=== PATIENT | male | born 1965 | race Caucasian/White ===

== ENCOUNTER 2017-03-16 01:07 | Inpatient (IN) | payer MEDICAID, OTHER ==
[~2017-03-16] VITALS: Ht 175.3 cm; Wt 77.8 kg
[~2017-03-16 01:07] MED LIST: DOXE25 PO
[2017-03-16] MEDS ORDERED: BENZ1TAB10 PO (03:30)
[2017-03-16 04:25] LABS: BASOPHILS % (AUTO) 1.2 % (0.0-2.0); EOSINOPHILS % (AUTO) 2.1 % (1.0-6.0); HEMATOCRIT 42.1 % (41-53); HEMOGLOBIN 14.6 g/dL (13.5-17.5); LYMPHOCYTES # (AUTO) 2.7 K/uL (1.0-4.8); LYMPHOCYTES % (AUTO) 19.8 % (22.0-44.0); MEAN CORPUSCULAR HEMOGLOBIN 32.5 pg (26.0-34.0); MEAN CORPUSCULAR HGB CONC 34.8 G/dL (31.0-37.0); MEAN CORPUSCULAR VOLUME 94 fL (80-100); MONOCYTES # (AUTO) 1.2 K/uL (0.1-1.0); MONOCYTES % (AUTO) 8.5 % (2.0-9.0); NEUTROPHILS # (AUTO) 9.4 K/uL (1.8-7.7); NEUTROPHILS % (AUTO) 68.4 % (40.0-70.0); PLATELET COUNT (AUTO) 268 K/uL (150-450); RED CELL DISTRIBUTION WIDTH 12.8 % (11.5-14.5)
[2017-03-16 04:35] LABS: ANION GAP 9 mmol/L (8-16); CARBON DIOXIDE 27 mmol/L (22-29); CHLORIDE 94 mmol/L (98-107); CREATININE 0.92 mg/dL (0.60-1.30); GLOMERULAR FILTR. RATE CALC > 60 mL/min (>60); GLUCOSE,RANDOM 120 mg/dL (70-110); POTASSIUM 4.1 mmol/L (3.5-5.1); SODIUM SERUM 130 mmol/L (136-145); UREA NITROGEN, BLOOD 14 mg/dL (7-18)
[2017-03-16 04:41] LABS: ALANINE AMINOTRANSFERASE 34 U/L (12-78); ALBUMIN 4.2 g/dL (3.4-5.0); ALKALINE PHOSPHATASE 60 U/L (46-116); ASPARTATE AMINOTRANSFERASE 27 U/L (15-37); BILIRUBIN,TOTAL 0.4 mg/dL (0.1-1.0); TOTAL PROTEIN, SERUM 7.6 g/dL (6.4-8.2)
[2017-03-16] MEDS ORDERED: HALOPERIDOL LACTATE 5 MG/ML VIAL IM ONE ×2 (04:45→08:15)
[2017-03-16] MEDS ORDERED: LORazepam 2 MG/ML VIAL IM ONE ×2 (04:45→08:15)
[2017-03-16] MEDS ORDERED: DiphenhydrAMINE HCL 50 MG/ML VIAL IM ONE ×2 (04:45→08:15)
[2017-03-16 05:12] LABS: AMPHET/METH SCREEN,URINE POSITIVE (NEGATIVE); BARBITURATE SCREEN, URINE NEGATIVE (NEGATIVE); BENZODIAZEPINES SCREEN,URINE NEGATIVE (NEGATIVE); CANNABINOID SCREEN,URINE NEGATIVE (NEGATIVE); COCAINE SCREEN,URINE NEGATIVE (NEGATIVE); METHADONE SCREEN, URINE NEGATIVE (NEGATIVE); OPIATE SCREEN,URINE NEGATIVE (NEGATIVE)
[2017-03-16 05:17] LABS: PHENCYCLIDINE SCREEN,URINE NEGATIVE (NEGATIVE)
[2017-03-16 05:50] LABS: APPEARANCE,URINE CLEAR (CLEAR); BILIRUBIN,URINE NEGATIVE (NEGATIVE); GLUCOSE, URINE (UA) NEGATIVE (NEGATIVE); KETONES,URINE NEGATIVE (NEGATIVE); LEUKOCYTE ESTERASE ,URINE NEGATIVE (NEGATIVE); NITRATE,URINE NEGATIVE (NEGATIVE); OCCULT BLOOD,URINE NEGATIVE (NEGATIVE); PROTEIN,URINE NEGATIVE (NEGATIVE); UROBILINOGEN,URINE 0.2 mg/dL (<=1.0)
[2017-03-16 15:01] VITALS: BP 137/80
[2017-03-16] MEDS ORDERED: INFLUENZA VIRUS VACCINE QVS 2017-18 (3YR+)/PF 60 MCG/0.5 ML SYRINGE IM ONE (15:30)
[2017-03-16 16:00] VITALS: BP 128/74
[2017-03-16] MEDS: LORazepam 2 MG TABLET PO PRN (16:00)
[2017-03-17 04:55] VITALS: BP 120/68
[2017-03-17 08:00] VITALS: BP 140/88
[2017-03-17 08:25] LABS: CHOL/HDL RATIO 2.8 (4.2-7.3)
[2017-03-17] MEDS: HALOPERIDOL 5 MG TABLET PO PRN ×2 (09:57→16:35)
[2017-03-17] MEDS: LORazepam 2 MG TABLET PO PRN ×2 (09:57→16:35)
[2017-03-17] MEDS: OLANZapine 5 MG TABLET PO SCH ×2 (09:57→20:14)
[2017-03-17 16:04] VITALS: BP 137/78
[2017-03-18 06:24] VITALS: BP 132/82
[2017-03-18 08:03] VITALS: BP 137/86
[2017-03-18] MEDS: OLANZapine 5 MG TABLET PO SCH ×2 (09:02→20:22)
[2017-03-18] MEDS: LORazepam 2 MG TABLET PO PRN ×2 (16:14→20:22)
[2017-03-18] MEDS: HALOPERIDOL 5 MG TABLET PO PRN (16:14)
[2017-03-18 16:25] VITALS: BP 115/72
[2017-03-18] MEDS: ZOLPIDEM TARTRATE 10 MG TABLET PO PRN (20:22)
[2017-03-19 02:30] VITALS: BP 118/80
[2017-03-19 08:10] VITALS: BP 123/74
[2017-03-19] MEDS: OLANZapine 5 MG TABLET PO SCH ×2 (08:11→20:07)
[2017-03-19] MEDS: LORazepam 2 MG TABLET PO PRN ×3 (08:11→17:16)
[2017-03-19] MEDS: HALOPERIDOL 5 MG TABLET PO PRN (08:11)
[2017-03-19 16:00] VITALS: BP 136/82
[2017-03-19] MEDS: FAMOTIDINE 20 MG TABLET PO SCH (17:00)
[2017-03-19] MEDS: LISINOPRIL 10 MG TABLET PO SCH (17:16)
[2017-03-19] MEDS: OMEPRAZOLE 20 MG CAPSULE PO SCH (17:16)
[2017-03-19] MEDS: ASPIRIN 81 MG CHEWABLE TABLET PO SCH (17:16)
[2017-03-20 04:52] VITALS: BP 138/88
[2017-03-20 08:11] LABS: BASOPHILS % (AUTO) 0.7 % (0.0-2.0); EOSINOPHILS % (AUTO) 2.4 % (1.0-6.0); HEMATOCRIT 41.8 % (41-53); HEMOGLOBIN 14.5 g/dL (13.5-17.5); LYMPHOCYTES # (AUTO) 1.7 K/uL (1.0-4.8); LYMPHOCYTES % (AUTO) 19.2 % (22.0-44.0); MEAN CORPUSCULAR HEMOGLOBIN 32.6 pg (26.0-34.0); MEAN CORPUSCULAR HGB CONC 34.7 G/dL (31.0-37.0); MEAN CORPUSCULAR VOLUME 94 fL (80-100); MONOCYTES # (AUTO) 0.6 K/uL (0.1-1.0); MONOCYTES % (AUTO) 7.1 % (2.0-9.0); NEUTROPHILS # (AUTO) 6.3 K/uL (1.8-7.7); NEUTROPHILS % (AUTO) 70.6 % (40.0-70.0); PLATELET COUNT (AUTO) 252 K/uL (150-450); RED BLOOD CELL COUNT(AUTO) 4.45 MIL/uL (4.50-5.90); RED CELL DISTRIBUTION WIDTH 12.6 % (11.5-14.5)
[2017-03-20 08:50] LABS: ANION GAP 7 mmol/L (8-16); CALCIUM, TOTAL 8.8 mg/dL (8.8-10.5); CARBON DIOXIDE 30 mmol/L (22-29); CHLORIDE 94 mmol/L (98-107); CREATININE 0.89 mg/dL (0.60-1.30); GLOMERULAR FILTR. RATE CALC > 60 mL/min (>60); GLUCOSE,RANDOM 123 mg/dL (70-110); POTASSIUM 4.4 mmol/L (3.5-5.1); SODIUM SERUM 131 mmol/L (136-145); UREA NITROGEN, BLOOD 11 mg/dL (7-18)
[2017-03-20 08:56] VITALS: BP 127/63
[2017-03-20] MEDS: OLANZapine 5 MG TABLET PO SCH (09:11)
[2017-03-20] MEDS: LORazepam 2 MG TABLET PO PRN ×3 (09:11→20:39)
[2017-03-20] MEDS: ASPIRIN 81 MG CHEWABLE TABLET PO SCH (09:11)
[2017-03-20] MEDS: LISINOPRIL 10 MG TABLET PO SCH (09:11)
[2017-03-20] MEDS: OMEPRAZOLE 20 MG CAPSULE PO SCH (09:11)
[2017-03-20] MEDS: HALOPERIDOL 5 MG TABLET PO PRN (09:11)
[2017-03-20] MEDS: FAMOTIDINE 20 MG TABLET PO SCH ×2 (09:11→16:36)
[2017-03-20] MEDS ORDERED: TUBERCULIN, PURIFIED PROTEIN DERIVATIVE 5 TU/0.1 ML SYG ID ONE (14:30)
[2017-03-20 16:00] VITALS: BP 138/82
[2017-03-20] MEDS: BENZTROPINE MESYLATE 1 MG TABLET PO SCH (16:35)
[2017-03-20] MEDS: CloZAPine 25 MG TABLET PO SCH (16:35)
[2017-03-20] MEDS: ZOLPIDEM TARTRATE 10 MG TABLET PO PRN (20:39)
[2017-03-21 05:27] VITALS: BP 134/79
[2017-03-21] MEDS: OMEPRAZOLE 20 MG CAPSULE PO SCH ×2 (08:12→09:00)
[2017-03-21] MEDS: CloZAPine 25 MG TABLET PO SCH ×3 (08:12→16:14)
[2017-03-21] MEDS: LORazepam 2 MG TABLET PO PRN ×2 (08:12→10:12)
[2017-03-21] MEDS: HALOPERIDOL 5 MG TABLET PO PRN (08:12)
[2017-03-21] MEDS: LISINOPRIL 10 MG TABLET PO SCH ×2 (08:12→09:00)
[2017-03-21] MEDS: BENZTROPINE MESYLATE 1 MG TABLET PO SCH ×3 (08:12→16:14)
[2017-03-21] MEDS: FAMOTIDINE 20 MG TABLET PO SCH ×3 (08:13→16:15)
[2017-03-21] MEDS: ASPIRIN 81 MG CHEWABLE TABLET PO SCH ×2 (08:13→09:00)
[2017-03-21 08:37] VITALS: BP 133/79
[2017-03-21 16:32] VITALS: BP 135/72
[2017-03-21] MEDS: ZOLPIDEM TARTRATE 10 MG TABLET PO PRN (20:18)
[2017-03-22 01:01] VITALS: BP 138/88
[2017-03-22] MEDS: LORazepam 2 MG TABLET PO PRN ×2 (01:02→16:41)
[2017-03-22 08:03] VITALS: BP 131/79
[2017-03-22] MEDS: BENZTROPINE MESYLATE 1 MG TABLET PO SCH ×2 (09:00→16:41)
[2017-03-22] MEDS: LISINOPRIL 10 MG TABLET PO SCH (09:00)
[2017-03-22] MEDS: OMEPRAZOLE 20 MG CAPSULE PO SCH (09:00)
[2017-03-22] MEDS: ASPIRIN 81 MG CHEWABLE TABLET PO SCH (09:00)
[2017-03-22] MEDS: CloZAPine 25 MG TABLET PO SCH ×2 (09:00→16:41)
[2017-03-22] MEDS: FAMOTIDINE 20 MG TABLET PO SCH ×2 (09:00→16:41)
[2017-03-22 16:00] VITALS: BP 138/77
[2017-03-22] MEDS: HALOPERIDOL 5 MG TABLET PO PRN (16:41)
[2017-03-23] MEDS ORDERED: DiphenhydrAMINE HCL 50 MG/ML VIAL IM ONE (05:15)
[2017-03-23] MEDS ORDERED: HALOPERIDOL LACTATE 5 MG/ML VIAL IM ONE (05:15)
[2017-03-23] MEDS ORDERED: LORazepam 2 MG/ML VIAL IM ONE (05:15)
[2017-03-23 06:21] VITALS: BP 139/86
[2017-03-23 08:12] VITALS: BP 139/72
[2017-03-23] MEDS: BENZTROPINE MESYLATE 1 MG TABLET PO SCH ×2 (08:39→16:25)
[2017-03-23] MEDS: LORazepam 2 MG TABLET PO PRN ×2 (08:40→16:25)
[2017-03-23] MEDS: CloZAPine 25 MG TABLET PO SCH ×2 (08:40→16:25)
[2017-03-23] MEDS: OMEPRAZOLE 20 MG CAPSULE PO SCH (08:40)
[2017-03-23] MEDS: FAMOTIDINE 20 MG TABLET PO SCH ×2 (08:40→16:25)
[2017-03-23] MEDS: LISINOPRIL 10 MG TABLET PO SCH (08:40)
[2017-03-23] MEDS: ASPIRIN 81 MG CHEWABLE TABLET PO SCH (08:40)
[2017-03-23] MEDS: HALOPERIDOL 5 MG TABLET PO PRN ×2 (09:10→16:25)
[2017-03-23 16:00] VITALS: BP 121/68
[2017-03-24 05:23] VITALS: BP 127/85
[2017-03-24 08:08] VITALS: BP 125/83
[2017-03-24] MEDS: LISINOPRIL 10 MG TABLET PO SCH (08:59)
[2017-03-24] MEDS: LORazepam 2 MG TABLET PO PRN ×2 (08:59→16:01)
[2017-03-24] MEDS: OMEPRAZOLE 20 MG CAPSULE PO SCH (08:59)
[2017-03-24] MEDS: BENZTROPINE MESYLATE 1 MG TABLET PO SCH ×2 (08:59→16:01)
[2017-03-24] MEDS: CloZAPine 25 MG TABLET PO SCH ×2 (08:59→16:02)
[2017-03-24] MEDS: FAMOTIDINE 20 MG TABLET PO SCH ×2 (09:12→16:02)
[2017-03-24] MEDS: ASPIRIN 81 MG CHEWABLE TABLET PO SCH (09:15)
[2017-03-24] MEDS: HALOPERIDOL 5 MG TABLET PO PRN ×2 (09:39→16:02)
[2017-03-24 16:00] VITALS: BP 138/80
[2017-03-25 02:59] VITALS: BP 128/82
[2017-03-25 08:03] VITALS: BP 132/78
[2017-03-25] MEDS: ASPIRIN 81 MG CHEWABLE TABLET PO SCH (09:24)
[2017-03-25] MEDS: LISINOPRIL 10 MG TABLET PO SCH (09:24)
[2017-03-25] MEDS: FAMOTIDINE 20 MG TABLET PO SCH ×2 (09:24→16:36)
[2017-03-25] MEDS: OMEPRAZOLE 20 MG CAPSULE PO SCH (09:24)
[2017-03-25] MEDS: BENZTROPINE MESYLATE 1 MG TABLET PO SCH ×2 (09:24→16:36)
[2017-03-25] MEDS: CloZAPine 25 MG TABLET PO SCH ×2 (09:24→16:36)
[2017-03-25 16:03] VITALS: BP 137/89
[2017-03-25] MEDS ORDERED: DiphenhydrAMINE HCL 50 MG/ML VIAL IM ONE (18:00)
[2017-03-25] MEDS ORDERED: LORazepam 2 MG/ML VIAL IM ONE (18:00)
[2017-03-25] MEDS ORDERED: HALOPERIDOL LACTATE 5 MG/ML VIAL IM ONE (18:00)
[2017-03-25 18:56] VITALS: BP 134/83
[2017-03-26] MEDS: LORazepam 2 MG TABLET PO PRN (01:54)
[2017-03-26] MEDS: ZOLPIDEM TARTRATE 10 MG TABLET PO PRN ×2 (01:54→21:21)
[2017-03-26] MEDS: HALOPERIDOL 5 MG TABLET PO PRN (01:54)
[2017-03-26 05:29] VITALS: BP 138/76
[2017-03-26 07:59] LABS: BASOPHILS # (AUTO) 0.03 K/uL (0.00-0.20); BASOPHILS % (AUTO) 0.3 % (0.0-2.0); EOSINOPHILS # (AUTO) 0.19 K/uL (0.00-0.70); EOSINOPHILS % (AUTO) 1.64 % (1.0-6.0); HEMATOCRIT 42.6 % (41-53); HEMOGLOBIN 14.4 g/dL (13.5-17.5); LYMPHOCYTES # (AUTO) 1.4 K/uL (1.0-4.8); LYMPHOCYTES % (AUTO) 12.2 % (22.0-44.0); MEAN CORPUSCULAR HEMOGLOBIN 32.2 pg (26.0-34.0); MEAN CORPUSCULAR HGB CONC 33.7 G/dL (31.0-37.0); MEAN CORPUSCULAR VOLUME 95 fL (80-100); MONOCYTES # (AUTO) 0.7 K/uL (0.1-1.0); MONOCYTES % (AUTO) 5.7 % (2.0-9.0); NEUTROPHILS # (AUTO) 9.3 K/uL (1.8-7.7); NEUTROPHILS % (AUTO) 80.2 % (40.0-70.0); PLATELET COUNT (AUTO) 231 K/uL (150-450); RED BLOOD CELL COUNT(AUTO) 4.47 MIL/uL (4.50-5.90); RED CELL DISTRIBUTION WIDTH 12.6 % (11.5-14.5)
[2017-03-26 08:40] LABS: ALANINE AMINOTRANSFERASE 37 U/L (12-78); ALBUMIN 3.8 g/dL (3.4-5.0); ALKALINE PHOSPHATASE 67 U/L (46-116); ANION GAP 9 mmol/L (8-16); ASPARTATE AMINOTRANSFERASE 27 U/L (15-37); BILIRUBIN,TOTAL 0.3 mg/dL (0.1-1.0); CALCIUM, TOTAL 8.9 mg/dL (8.8-10.5); CARBON DIOXIDE 26 mmol/L (22-29); CHLORIDE 93 mmol/L (98-107); CREATININE 0.88 mg/dL (0.60-1.30); GLOMERULAR FILTR. RATE CALC > 60 mL/min (>60); GLUCOSE,RANDOM 146 mg/dL (70-110); POTASSIUM 4.2 mmol/L (3.5-5.1); SODIUM SERUM 128 mmol/L (136-145); TOTAL PROTEIN, SERUM 7.4 g/dL (6.4-8.2); UREA NITROGEN, BLOOD 14 mg/dL (7-18)
[2017-03-26] MEDS ORDERED: CloZAPine 25 MG TABLET PO SCH (09:00)
[2017-03-26 09:16] VITALS: BP 148/74
[2017-03-26] MEDS: ASPIRIN 81 MG CHEWABLE TABLET PO SCH (09:16)
[2017-03-26] MEDS: OMEPRAZOLE 20 MG CAPSULE PO SCH (09:16)
[2017-03-26] MEDS: BENZTROPINE MESYLATE 1 MG TABLET PO SCH ×2 (09:16→17:00)
[2017-03-26] MEDS: FAMOTIDINE 20 MG TABLET PO SCH ×2 (09:16→17:00)
[2017-03-26] MEDS: LISINOPRIL 10 MG TABLET PO SCH (09:16)
[2017-03-26] MEDS: SODIUM CHLORIDE 1 GM TABLET PO SCH (17:00)
[2017-03-27 05:56] VITALS: BP 138/88
[2017-03-27 08:05] VITALS: BP 139/84
[2017-03-27 08:28] LABS: BASOPHILS # (AUTO) 0.05 K/uL (0.00-0.20); BASOPHILS % (AUTO) 0.3 % (0.0-2.0); EOSINOPHILS # (AUTO) 0.28 K/uL (0.00-0.70); EOSINOPHILS % (AUTO) 1.98 % (1.0-6.0); HEMATOCRIT 43.7 % (41-53); HEMOGLOBIN 14.9 g/dL (13.5-17.5); LYMPHOCYTES # (AUTO) 2.1 K/uL (1.0-4.8); LYMPHOCYTES % (AUTO) 14.3 % (22.0-44.0); MEAN CORPUSCULAR HEMOGLOBIN 32.3 pg (26.0-34.0); MEAN CORPUSCULAR HGB CONC 34.1 G/dL (31.0-37.0); MEAN CORPUSCULAR VOLUME 95 fL (80-100); MONOCYTES # (AUTO) 1.2 K/uL (0.1-1.0); MONOCYTES % (AUTO) 8.3 % (2.0-9.0); NEUTROPHILS # (AUTO) 10.8 K/uL (1.8-7.7); NEUTROPHILS % (AUTO) 75.1 % (40.0-70.0); PLATELET COUNT (AUTO) 244 K/uL (150-450); RED BLOOD CELL COUNT(AUTO) 4.61 MIL/uL (4.50-5.90); RED CELL DISTRIBUTION WIDTH 12.6 % (11.5-14.5)
[2017-03-27] MEDS: BENZTROPINE MESYLATE 1 MG TABLET PO SCH ×2 (08:57→16:32)
[2017-03-27] MEDS: ASPIRIN 81 MG CHEWABLE TABLET PO SCH (08:57)
[2017-03-27] MEDS: LISINOPRIL 10 MG TABLET PO SCH (08:58)
[2017-03-27] MEDS: SODIUM CHLORIDE 1 GM TABLET PO SCH ×2 (08:58→16:32)
[2017-03-27] MEDS: FAMOTIDINE 20 MG TABLET PO SCH ×2 (08:58→16:32)
[2017-03-27] MEDS: OMEPRAZOLE 20 MG CAPSULE PO SCH (08:58)
[2017-03-27] MEDS ORDERED: CloZAPine 25 MG TABLET PO SCH ×2 (09:00→21:00)
[2017-03-27] MEDS: LORazepam 2 MG TABLET PO PRN ×2 (12:07→16:32)
[2017-03-27 16:14] VITALS: BP 135/80
[2017-03-27] MEDS: HALOPERIDOL 5 MG TABLET PO PRN (16:32)
[2017-03-28 06:06] VITALS: BP 133/83
[2017-03-28 08:07] VITALS: BP 141/74
[2017-03-28] MEDS ORDERED: CloZAPine 25 MG TABLET PO SCH ×2 (09:00→21:00)
[2017-03-28] MEDS: FluPHENAZine DECANOATE 25 MG/ML IM SCH (09:10)
[2017-03-28] MEDS: LISINOPRIL 10 MG TABLET PO SCH (09:10)
[2017-03-28] MEDS: LORazepam 2 MG TABLET PO PRN ×2 (09:10→16:25)
[2017-03-28] MEDS: SODIUM CHLORIDE 1 GM TABLET PO SCH ×2 (09:10→16:24)
[2017-03-28] MEDS: ASPIRIN 81 MG CHEWABLE TABLET PO SCH (09:11)
[2017-03-28] MEDS: OMEPRAZOLE 20 MG CAPSULE PO SCH (09:12)
[2017-03-28] MEDS: BENZTROPINE MESYLATE 1 MG TABLET PO SCH ×2 (09:12→16:25)
[2017-03-28] MEDS: FAMOTIDINE 20 MG TABLET PO SCH ×2 (09:12→16:25)
[2017-03-28] MEDS ORDERED: LORazepam 2 MG/ML VIAL IM ONE (09:45)
[2017-03-28] MEDS ORDERED: DiphenhydrAMINE HCL 50 MG/ML VIAL IM ONE (09:45)
[2017-03-28] MEDS ORDERED: HALOPERIDOL LACTATE 5 MG/ML VIAL IM ONE (09:45)
[2017-03-28 16:00] VITALS: BP 140/89
[2017-03-28] MEDS: HALOPERIDOL 5 MG TABLET PO PRN (16:25)
[2017-03-29 05:21] VITALS: BP 140/92
[2017-03-29 08:25] VITALS: BP 138/67
[2017-03-29] MEDS: SODIUM CHLORIDE 1 GM TABLET PO SCH ×2 (09:00→17:36)
[2017-03-29] MEDS: BENZTROPINE MESYLATE 1 MG TABLET PO SCH ×2 (09:00→17:36)
[2017-03-29] MEDS: CloZAPine 25 MG TABLET PO SCH ×2 (09:00→20:31)
[2017-03-29] MEDS: LISINOPRIL 10 MG TABLET PO SCH (09:01)
[2017-03-29] MEDS: HALOPERIDOL 5 MG TABLET PO PRN ×2 (09:01→13:04)
[2017-03-29] MEDS: LORazepam 2 MG TABLET PO PRN ×3 (09:01→20:30)
[2017-03-29] MEDS: ASPIRIN 81 MG CHEWABLE TABLET PO SCH (09:01)
[2017-03-29] MEDS: FAMOTIDINE 20 MG TABLET PO SCH ×2 (09:01→17:31)
[2017-03-29] MEDS: OMEPRAZOLE 20 MG CAPSULE PO SCH (09:01)
[2017-03-29 09:44] LABS: ANION GAP 8 mmol/L (8-16); CALCIUM, TOTAL 8.7 mg/dL (8.8-10.5); CARBON DIOXIDE 26 mmol/L (22-29); CHLORIDE 96 mmol/L (98-107); CREATININE 0.95 mg/dL (0.60-1.30); GLOMERULAR FILTR. RATE CALC > 60 mL/min (>60); GLUCOSE,RANDOM 125 mg/dL (70-110); POTASSIUM 4.7 mmol/L (3.5-5.1); SODIUM SERUM 130 mmol/L (136-145); UREA NITROGEN, BLOOD 20 mg/dL (7-18)
[2017-03-29 16:00] VITALS: BP 136/81
[2017-03-29] MEDS: ZOLPIDEM TARTRATE 10 MG TABLET PO PRN (20:31)
[2017-03-30 06:28] VITALS: BP 133/83
[2017-03-30 08:22] VITALS: BP 115/69
[2017-03-30] MEDS: LISINOPRIL 10 MG TABLET PO SCH (09:00)
[2017-03-30] MEDS: OMEPRAZOLE 20 MG CAPSULE PO SCH (09:02)
[2017-03-30] MEDS: ASPIRIN 81 MG CHEWABLE TABLET PO SCH (09:02)
[2017-03-30] MEDS: SODIUM CHLORIDE 1 GM TABLET PO SCH ×2 (09:02→16:26)
[2017-03-30] MEDS: BENZTROPINE MESYLATE 1 MG TABLET PO SCH ×2 (09:02→16:26)
[2017-03-30] MEDS: CloZAPine 25 MG TABLET PO SCH ×2 (09:03→20:18)
[2017-03-30] MEDS: FAMOTIDINE 20 MG TABLET PO SCH ×2 (09:03→16:26)
[2017-03-30 16:35] VITALS: BP 134/85
[2017-03-30] MEDS: LORazepam 2 MG TABLET PO PRN (17:36)
[2017-03-30] MEDS: HALOPERIDOL 5 MG TABLET PO PRN (17:36)
[2017-03-30] MEDS: ZOLPIDEM TARTRATE 10 MG TABLET PO PRN (20:53)
[2017-03-31 05:43] VITALS: BP 129/78
[2017-03-31 08:00] VITALS: BP 158/101
[2017-03-31] MEDS: ASPIRIN 81 MG CHEWABLE TABLET PO SCH (08:39)
[2017-03-31] MEDS: SODIUM CHLORIDE 1 GM TABLET PO SCH ×2 (08:39→16:31)
[2017-03-31] MEDS: OMEPRAZOLE 20 MG CAPSULE PO SCH (08:39)
[2017-03-31] MEDS: BENZTROPINE MESYLATE 1 MG TABLET PO SCH ×2 (08:39→16:31)
[2017-03-31] MEDS: LISINOPRIL 10 MG TABLET PO SCH (08:39)
[2017-03-31] MEDS: FAMOTIDINE 20 MG TABLET PO SCH ×2 (08:39→16:31)
[2017-03-31] MEDS ORDERED: CloZAPine 25 MG TABLET PO SCH (09:00)
[2017-03-31 09:43] VITALS: BP 136/70
[2017-03-31] MEDS: LORazepam 2 MG TABLET PO PRN ×2 (10:16→16:31)
[2017-03-31] MEDS: HALOPERIDOL 5 MG TABLET PO PRN (16:31)
[2017-03-31 16:33] VITALS: BP 135/82
[2017-03-31] MEDS: ZOLPIDEM TARTRATE 10 MG TABLET PO PRN (20:25)
[2017-03-31] MEDS ORDERED: CloZAPine 100 MG TABLET PO SCH (21:00)
[2017-04-01 05:56] VITALS: BP 126/83
[2017-04-01 08:05] VITALS: BP 124/78
[2017-04-01] MEDS: ASPIRIN 81 MG CHEWABLE TABLET PO SCH (08:49)
[2017-04-01] MEDS: BENZTROPINE MESYLATE 1 MG TABLET PO SCH ×2 (08:49→16:42)
[2017-04-01] MEDS: LISINOPRIL 10 MG TABLET PO SCH (08:50)
[2017-04-01] MEDS: OMEPRAZOLE 20 MG CAPSULE PO SCH (08:50)
[2017-04-01] MEDS: SODIUM CHLORIDE 1 GM TABLET PO SCH ×2 (08:50→16:44)
[2017-04-01] MEDS: FAMOTIDINE 20 MG TABLET PO SCH ×2 (08:52→16:43)
[2017-04-01] MEDS ORDERED: CloZAPine 25 MG TABLET PO SCH (09:00)
[2017-04-01 16:30] VITALS: BP 126/81
[2017-04-01] MEDS: LORazepam 2 MG TABLET PO PRN (16:42)
[2017-04-01] MEDS: HALOPERIDOL 5 MG TABLET PO PRN (16:42)
[2017-04-01] MEDS ORDERED: DiphenhydrAMINE HCL 50 MG/ML VIAL IM ONE (18:30)
[2017-04-01] MEDS ORDERED: LORazepam 2 MG/ML VIAL IM ONE (18:30)
[2017-04-01] MEDS ORDERED: HALOPERIDOL LACTATE 5 MG/ML VIAL IM ONE (18:30)
[2017-04-01] MEDS: ZOLPIDEM TARTRATE 10 MG TABLET PO PRN (20:27)
[2017-04-01] MEDS ORDERED: CloZAPine 100 MG TABLET PO SCH (21:00)
[2017-04-02 02:59] VITALS: BP 126/64
[2017-04-02 08:12] VITALS: BP 140/86
[2017-04-02] MEDS: SODIUM CHLORIDE 1 GM TABLET PO SCH ×2 (08:34→16:31)
[2017-04-02] MEDS: FAMOTIDINE 20 MG TABLET PO SCH ×2 (08:34→16:31)
[2017-04-02] MEDS: ASPIRIN 81 MG CHEWABLE TABLET PO SCH (08:35)
[2017-04-02] MEDS: LORazepam 2 MG TABLET PO PRN ×3 (08:35→20:34)
[2017-04-02] MEDS: BENZTROPINE MESYLATE 1 MG TABLET PO SCH ×2 (08:35→16:31)
[2017-04-02] MEDS: OMEPRAZOLE 20 MG CAPSULE PO SCH (08:35)
[2017-04-02] MEDS: LISINOPRIL 10 MG TABLET PO SCH (08:36)
[2017-04-02] MEDS ORDERED: CloZAPine 25 MG TABLET PO SCH (09:00)
[2017-04-02 09:12] LABS: BASOPHILS # (AUTO) 0.05 K/uL (0.00-0.20); BASOPHILS % (AUTO) 0.5 % (0.0-2.0); EOSINOPHILS # (AUTO) 0.33 K/uL (0.00-0.70); EOSINOPHILS % (AUTO) 3.36 % (1.0-6.0); HEMATOCRIT 43.9 % (41-53); HEMOGLOBIN 15.2 g/dL (13.5-17.5); LYMPHOCYTES # (AUTO) 1.8 K/uL (1.0-4.8); LYMPHOCYTES % (AUTO) 18.6 % (22.0-44.0); MEAN CORPUSCULAR HEMOGLOBIN 32.1 pg (26.0-34.0); MEAN CORPUSCULAR HGB CONC 34.6 G/dL (31.0-37.0); MEAN CORPUSCULAR VOLUME 93 fL (80-100); MONOCYTES # (AUTO) 0.6 K/uL (0.1-1.0); MONOCYTES % (AUTO) 6.1 % (2.0-9.0); NEUTROPHILS % (AUTO) 71.5 % (40.0-70.0); PLATELET COUNT (AUTO) 267 K/uL (150-450); RED BLOOD CELL COUNT(AUTO) 4.74 MIL/uL (4.50-5.90); RED CELL DISTRIBUTION WIDTH 12.8 % (11.5-14.5)
[2017-04-02] MEDS: HALOPERIDOL 5 MG TABLET PO PRN (16:31)
[2017-04-02 17:09] VITALS: BP 142/87
[2017-04-02] MEDS: ZOLPIDEM TARTRATE 10 MG TABLET PO PRN (20:34)
[2017-04-02] MEDS ORDERED: CloZAPine 100 MG TABLET PO SCH (21:00)
[2017-04-03 06:28] VITALS: BP 137/75
[2017-04-03 08:07] VITALS: BP 139/83
[2017-04-03] MEDS: ASPIRIN 81 MG CHEWABLE TABLET PO SCH (09:00)
[2017-04-03] MEDS: BENZTROPINE MESYLATE 1 MG TABLET PO SCH ×2 (09:00→16:42)
[2017-04-03] MEDS: OMEPRAZOLE 20 MG CAPSULE PO SCH (09:00)
[2017-04-03] MEDS: SODIUM CHLORIDE 1 GM TABLET PO SCH ×2 (09:00→16:42)
[2017-04-03] MEDS: CloZAPine 100 MG TABLET PO SCH ×2 (09:01→20:15)
[2017-04-03] MEDS: FAMOTIDINE 20 MG TABLET PO SCH ×2 (09:01→16:42)
[2017-04-03] MEDS: LISINOPRIL 10 MG TABLET PO SCH (09:01)
[2017-04-03 16:00] VITALS: BP 138/79
[2017-04-03] MEDS: LORazepam 2 MG TABLET PO PRN ×2 (16:42→20:50)
[2017-04-03] MEDS: HALOPERIDOL 5 MG TABLET PO PRN (16:42)
[2017-04-03] MEDS: ZOLPIDEM TARTRATE 10 MG TABLET PO PRN (20:50)
[2017-04-04 06:22] VITALS: BP 138/70
[2017-04-04 08:00] VITALS: BP 137/78
[2017-04-04] MEDS: BENZTROPINE MESYLATE 1 MG TABLET PO SCH ×2 (09:34→16:39)
[2017-04-04] MEDS: CloZAPine 100 MG TABLET PO SCH ×2 (09:35→20:41)
[2017-04-04] MEDS: LISINOPRIL 10 MG TABLET PO SCH (09:35)
[2017-04-04] MEDS: OMEPRAZOLE 20 MG CAPSULE PO SCH (09:35)
[2017-04-04] MEDS: FAMOTIDINE 20 MG TABLET PO SCH ×2 (09:36→16:39)
[2017-04-04] MEDS: ASPIRIN 81 MG CHEWABLE TABLET PO SCH (09:36)
[2017-04-04] MEDS: SODIUM CHLORIDE 1 GM TABLET PO SCH ×2 (09:37→16:40)
[2017-04-04] MEDS: HALOPERIDOL 5 MG TABLET PO PRN ×2 (09:38→16:40)
[2017-04-04] MEDS: LORazepam 2 MG TABLET PO PRN ×2 (09:38→16:40)
[2017-04-04 16:11] VITALS: BP 114/74
[2017-04-05 05:19] VITALS: BP 122/81
[2017-04-05 08:00] VITALS: BP 127/79
[2017-04-05] MEDS: FAMOTIDINE 20 MG TABLET PO SCH ×2 (08:20→16:25)
[2017-04-05] MEDS: LISINOPRIL 10 MG TABLET PO SCH (08:20)
[2017-04-05] MEDS: ASPIRIN 81 MG CHEWABLE TABLET PO SCH (08:21)
[2017-04-05] MEDS: HALOPERIDOL 5 MG TABLET PO PRN (08:21)
[2017-04-05] MEDS: OMEPRAZOLE 20 MG CAPSULE PO SCH (08:21)
[2017-04-05] MEDS: BENZTROPINE MESYLATE 1 MG TABLET PO SCH ×2 (08:21→16:25)
[2017-04-05] MEDS: SODIUM CHLORIDE 1 GM TABLET PO SCH ×2 (08:22→16:25)
[2017-04-05] MEDS ORDERED: CloZAPine 25 MG TABLET PO SCH (09:00)
[2017-04-05 16:28] VITALS: BP 129/71
[2017-04-05] MEDS ORDERED: CloZAPine 100 MG TABLET PO SCH (21:00)
[2017-04-06 05:36] VITALS: BP 132/72
[2017-04-06 08:04] VITALS: BP 138/78
[2017-04-06] MEDS: BENZTROPINE MESYLATE 1 MG TABLET PO SCH ×2 (08:51→16:34)
[2017-04-06] MEDS: SODIUM CHLORIDE 1 GM TABLET PO SCH ×2 (08:52→16:34)
[2017-04-06] MEDS: LISINOPRIL 10 MG TABLET PO SCH (08:52)
[2017-04-06] MEDS: OMEPRAZOLE 20 MG CAPSULE PO SCH (08:52)
[2017-04-06] MEDS: FAMOTIDINE 20 MG TABLET PO SCH ×2 (08:52→16:34)
[2017-04-06] MEDS ORDERED: CloZAPine 25 MG TABLET PO SCH (09:00)
[2017-04-06] MEDS: ASPIRIN 81 MG CHEWABLE TABLET PO SCH (09:38)
[2017-04-06] MEDS: LORazepam 2 MG TABLET PO PRN ×3 (09:59→20:36)
[2017-04-06 16:00] VITALS: BP 126/73
[2017-04-06] MEDS: HALOPERIDOL 5 MG TABLET PO PRN (16:35)
[2017-04-06] MEDS: ZOLPIDEM TARTRATE 10 MG TABLET PO PRN (20:36)
[2017-04-06] MEDS ORDERED: CloZAPine 100 MG TABLET PO SCH (21:00)
[2017-04-07 06:02] VITALS: BP 124/70
[2017-04-07 08:00] VITALS: BP 144/88
[2017-04-07] MEDS: BENZTROPINE MESYLATE 1 MG TABLET PO SCH ×2 (08:38→16:30)
[2017-04-07] MEDS: LISINOPRIL 10 MG TABLET PO SCH (08:39)
[2017-04-07] MEDS: CloZAPine 100 MG TABLET PO SCH ×2 (08:39→20:48)
[2017-04-07] MEDS: ASPIRIN 81 MG CHEWABLE TABLET PO SCH (08:39)
[2017-04-07] MEDS: OMEPRAZOLE 20 MG CAPSULE PO SCH (08:39)
[2017-04-07] MEDS: SODIUM CHLORIDE 1 GM TABLET PO SCH ×2 (08:39→16:30)
[2017-04-07] MEDS: LORazepam 2 MG TABLET PO PRN ×3 (08:41→18:12)
[2017-04-07] MEDS: FAMOTIDINE 20 MG TABLET PO SCH ×2 (09:23→16:30)
[2017-04-07] MEDS: HALOPERIDOL 5 MG TABLET PO PRN ×2 (09:23→16:30)
[2017-04-07 16:00] VITALS: BP 137/89
[2017-04-07] MEDS: ZOLPIDEM TARTRATE 10 MG TABLET PO PRN (20:48)
[2017-04-08 07:14] VITALS: BP 132/80
[2017-04-08 07:15] VITALS: BP 126/74
[2017-04-08 07:51] LABS: BASOPHILS # (AUTO) 0.03 K/uL (0.00-0.20); BASOPHILS % (AUTO) 0.3 % (0.0-2.0); EOSINOPHILS # (AUTO) 0.26 K/uL (0.00-0.70); EOSINOPHILS % (AUTO) 2.94 % (1.0-6.0); HEMOGLOBIN 14.7 g/dL (13.5-17.5); LYMPHOCYTES # (AUTO) 1.8 K/uL (1.0-4.8); LYMPHOCYTES % (AUTO) 20.8 % (22.0-44.0); MEAN CORPUSCULAR HEMOGLOBIN 32.1 pg (26.0-34.0); MEAN CORPUSCULAR HGB CONC 34.9 G/dL (31.0-37.0); MEAN CORPUSCULAR VOLUME 92 fL (80-100); MONOCYTES # (AUTO) 0.8 K/uL (0.1-1.0); MONOCYTES % (AUTO) 9.1 % (2.0-9.0); NEUTROPHILS # (AUTO) 5.9 K/uL (1.8-7.7); NEUTROPHILS % (AUTO) 66.8 % (40.0-70.0); PLATELET COUNT (AUTO) 228 K/uL (150-450); RED BLOOD CELL COUNT(AUTO) 4.57 MIL/uL (4.50-5.90); RED CELL DISTRIBUTION WIDTH 12.8 % (11.5-14.5)
[2017-04-08 08:10] LABS: ANION GAP 5 mmol/L (8-16); CALCIUM, TOTAL 8.7 mg/dL (8.8-10.5); CARBON DIOXIDE 29 mmol/L (22-29); CHLORIDE 97 mmol/L (98-107); CREATININE 0.95 mg/dL (0.60-1.30); GLOMERULAR FILTR. RATE CALC > 60 mL/min (>60); GLUCOSE,RANDOM 115 mg/dL (70-110); POTASSIUM 4.5 mmol/L (3.5-5.1); SODIUM SERUM 131 mmol/L (136-145); UREA NITROGEN, BLOOD 14 mg/dL (7-18)
[2017-04-08] MEDS: CloZAPine 100 MG TABLET PO SCH ×2 (08:38→20:28)
[2017-04-08] MEDS: FAMOTIDINE 20 MG TABLET PO SCH ×2 (08:38→17:26)
[2017-04-08] MEDS: BENZTROPINE MESYLATE 1 MG TABLET PO SCH ×2 (08:38→17:26)
[2017-04-08] MEDS: SODIUM CHLORIDE 1 GM TABLET PO SCH ×2 (08:38→17:26)
[2017-04-08] MEDS: LORazepam 2 MG TABLET PO PRN ×3 (08:39→17:26)
[2017-04-08] MEDS: HALOPERIDOL 5 MG TABLET PO PRN ×3 (08:39→17:26)
[2017-04-08] MEDS: LISINOPRIL 10 MG TABLET PO SCH (08:39)
[2017-04-08] MEDS: ASPIRIN 81 MG CHEWABLE TABLET PO SCH (08:39)
[2017-04-08] MEDS: OMEPRAZOLE 20 MG CAPSULE PO SCH (08:41)
[2017-04-08 08:43] VITALS: BP 143/92
[2017-04-08 16:00] VITALS: BP 137/88
[2017-04-08] MEDS: ZOLPIDEM TARTRATE 10 MG TABLET PO PRN (20:28)
[2017-04-09 05:34] VITALS: BP 120/91
[2017-04-09 08:00] VITALS: BP 138/93
[2017-04-09] MEDS: BENZTROPINE MESYLATE 1 MG TABLET PO SCH ×2 (09:07→17:20)
[2017-04-09] MEDS: SODIUM CHLORIDE 1 GM TABLET PO SCH ×2 (09:07→17:20)
[2017-04-09] MEDS: LISINOPRIL 10 MG TABLET PO SCH (09:07)
[2017-04-09] MEDS: OMEPRAZOLE 20 MG CAPSULE PO SCH (09:07)
[2017-04-09] MEDS: ASPIRIN 81 MG CHEWABLE TABLET PO SCH (09:07)
[2017-04-09] MEDS: FAMOTIDINE 20 MG TABLET PO SCH ×2 (09:07→17:20)
[2017-04-09] MEDS: CloZAPine 100 MG TABLET PO SCH ×2 (09:07→21:19)
[2017-04-09 16:07] VITALS: BP 138/84
[2017-04-09] MEDS: LORazepam 2 MG TABLET PO PRN (17:21)
[2017-04-09] MEDS: HALOPERIDOL 5 MG TABLET PO PRN (17:21)
[2017-04-09] MEDS: ZOLPIDEM TARTRATE 10 MG TABLET PO PRN (21:20)
[2017-04-10 06:05] VITALS: BP 128/74
[2017-04-10 08:06] VITALS: BP 123/79
[2017-04-10] MEDS: BENZTROPINE MESYLATE 1 MG TABLET PO SCH ×2 (09:15→16:35)
[2017-04-10] MEDS: SODIUM CHLORIDE 1 GM TABLET PO SCH ×2 (09:15→16:35)
[2017-04-10] MEDS: LISINOPRIL 10 MG TABLET PO SCH (09:15)
[2017-04-10] MEDS: ASPIRIN 81 MG CHEWABLE TABLET PO SCH (09:15)
[2017-04-10] MEDS: CloZAPine 100 MG TABLET PO SCH ×2 (09:15→20:27)
[2017-04-10] MEDS: OMEPRAZOLE 20 MG CAPSULE PO SCH (09:15)
[2017-04-10] MEDS: FAMOTIDINE 20 MG TABLET PO SCH ×2 (09:16→16:35)
[2017-04-10 16:00] VITALS: BP 143/89
[2017-04-10] MEDS: LORazepam 2 MG TABLET PO PRN (16:36)
[2017-04-10] MEDS: HALOPERIDOL 5 MG TABLET PO PRN (16:36)
[2017-04-10] MEDS: ZOLPIDEM TARTRATE 10 MG TABLET PO PRN (20:27)
[2017-04-11 06:34] VITALS: BP 122/65
[2017-04-11] MEDS: ASPIRIN 81 MG CHEWABLE TABLET PO SCH (08:09)
[2017-04-11] MEDS: LISINOPRIL 10 MG TABLET PO SCH (08:09)
[2017-04-11] MEDS: FluPHENAZine DECANOATE 25 MG/ML IM SCH (08:09)
[2017-04-11] MEDS: OMEPRAZOLE 20 MG CAPSULE PO SCH (08:09)
[2017-04-11] MEDS: SODIUM CHLORIDE 1 GM TABLET PO SCH (08:09)
[2017-04-11] MEDS: FAMOTIDINE 20 MG TABLET PO SCH (08:09)
[2017-04-11] MEDS: LORazepam 2 MG TABLET PO PRN (08:10)
[2017-04-11] MEDS: BENZTROPINE MESYLATE 1 MG TABLET PO SCH (08:10)
[2017-04-11] MEDS: CloZAPine 100 MG TABLET PO SCH (08:10)
[2017-04-11 08:27] VITALS: BP 123/78
[2017-04-11] MEDS ORDERED: FLUD25I IM (14:01)
[2017-04-11] MEDS ORDERED: LISI-661 PO (14:01)
[2017-04-11] MEDS ORDERED: NACL1 PO (14:01)
[2017-04-11] MEDS ORDERED: CLOZ100 PO ×2 (14:01→14:04)
== END 2017-04-11 14:25 | disposition home or self-care (01) | DRG 750 ==
LOC: EMS 01:08 → B3A 13:43
DX: F20.0 Paranoid schizophrenia (principal); E87.1 Hypo-osmolality and hyponatremia; I10 Essential (primary) hypertension; D72.829 Elevated white blood cell count, unspecified; F15.10 Other stimulant abuse, uncomplicated; Z28.21 Immunization not carried out because of patient refusal; Z79.899 Other long term (current) drug therapy; Z71.51 Drug abuse counseling and surveillance of drug abuser
CPT/HCPCS: 90471; 96372; 99285; G0480; J1200; J1630; J2060; J2680